=== PATIENT | male | born 1980 | race Caucasian/White ===

== ENCOUNTER 2016-12-29 17:03 | Inpatient (IN) | payer OTHER ==
[~2016-12-29] VITALS: Ht 177.8 cm; Wt 91.2 kg
--- NOTE | 2016-12-29 19:12 | NUR ---
PT WAS AN OUTPATIENT CT. PER OENOLOGIST JORDANA, PT WAS WAITING HERE FOR RESULTS. CT IS (+) FOR APPENDICITIS. PT BROUGHT TO ER WAITING ROOM BY JORDANA. PINA IN ADMITTING NOTIFIED TO CONVERT PT'S ACCOUNT TO ER. TRIAGE ESTUARDO (OFF-GOING) & JOSE MANUEL Sanchez (ONCOMING) NOTIFIED OF PT'S STATUS & PRESENCE IN ER LOBBY.
--- NOTE | 2016-12-29 19:34 | NUR ---
AT [facility]
--- NOTE | 2016-12-29 19:40 | NUR ---
PT IN ED FOR RLQ PAIN X2 DAYS WITH ONE EPISODE OF DIARRHEA TODAY. DENIES N/V. PT AAO4, RESP E/U, STS NO PAIN BUT REPORTS A "DISCOMFORT." PT HAS NO FURTHER REQUESTS AT THIS TIME
[2016-12-29 19:59] LABS: BASOPHIL % 0.7 % (0-2); PLATELET COUNT 252 x10^3mcL (130-400); RED CELL DISTRIBUTION WIDTH 12.7 % (11.5-14.5)
--- NOTE | 2016-12-29 20:01 | NUR ---
PT REQUESTED TO USE PHONE TO MAKE PHONE CALL
--- NOTE | 2016-12-29 20:47 | NUR ---
FLUIDS COMPLETED INFUSION. PT AAO4, RESP E/U; STS 0/10 PAIN AT THIS TIME
--- NOTE | 2016-12-29 21:02 | NUR ---
REPORT GIVEN TO JANET TO ASSUME CARE OF PT
[2016-12-29 21:14] LABS: T3 TOTAL 1.27 ng/mL
[2016-12-29 21:15] LABS: FREE T4 0.92 ng/dL (0.76-1.46); FREE THYROXINE INDEX 2.6 ug/dL (1.4-4.5); T4(THYROXINE) 7.3 ug/dL (4.7-13.3)
[2016-12-29 21:15] LABS: ALBUMIN 4.2 g/dL (3.4-5.0); ALKALINE PHOSPHATASE 75 U/L (46-116); ALT/SGPT 29 U/L (16-63); AST/SGOT 21 U/L (15-37); BILIRUBIN TOTAL 0.7 mg/dL (0.20-1.00); CARBON DIOXIDE 26.3 mmol/L (21-32); CHLORIDE SERUM 101 mmol/L (98-107); CREATININE SERUM 0.8 mg/dL (0.7-1.3); GFR1 > 60 mL/min; GLUCOSE SERUM 100 mg/dL (74-106); POTASSIUM SERUM 3.7 mmol/L (3.5-5.1); SODIUM SERUM 139 mmol/L (136-145); TOTAL PROTEIN, SERUM 8.1 g/dL (6.4-8.2)
[2016-12-29 21:24] VITALS: BP 114/71
--- NOTE | 2016-12-29 21:31 | NUR ---
REC'D AOX4, SPEECH CLEAR. AT THE BEDSIDE. DENIES PAIN. ATTACHED TELE 9, NSR. ON RA, NO SOB NOTED. IV SITE WNL. ORIENTED TO ROOM AND SURROUNDINGS. CALL LIGHT WITHIN REACH, PROVIDED REPORT TO LARY MEYERS FOR CONTINUITY OF CARE.
[2016-12-29 21:40] LABS: CHOLESTEROL/HDL RATIO 4.1; MAGNESIUM 1.8 mg/dL (1.8-2.4); PHOSPHOROUS 3.5 mg/dL (2.5-4.9)
--- NOTE | 2016-12-29 21:48 | NUR ---
PT. RESTING COMFORTABLY AT THIS TIME W/ OUT ANY ABD. PAIN OR NAUUSEA. PT. MADE AWARE THAT HE'S NPO. IVF NS STARTED AT 140CC/HR LAC. AT BEDSIDE. CALL LIGHT PLACED WITHIN REACH.
--- NOTE | 2016-12-29 22:10 | NUR ---
DR. BLAIR CALLED TO NOTIFY THAT HE WILL BE DOING SURGERY, LAP APPE W/ POSSIBLE OPEN, ON HIS PATIENT TOMORROW. DR. ZALDIVAR HAS PLACED ORDERS RECEIVED FROM DR. BLAIR. PT. MADE AWARE.
--- NOTE | 2016-12-29 22:43 | NUR ---
RECEIVED CONSENT FOR SURGERY.
[2016-12-30 01:28] LABS: microscopic required? YES; urine erythrocyte TRACE (NEGATIVE)
[2016-12-30 01:45] LABS: AMPHETAMINE QUAL UR NONE DETECTED (NEG <=1000)
--- NOTE | 2016-12-30 05:00 | NUR ---
ANA LILIA BATH COMPLETED. PT. DENIES ANY ABD. PAIN OR NAUSEA THIS MORNING. IV SITE REMAINS INTACT. CALL LIGHT WITHIN REACH.
[2016-12-30 06:03] VITALS: BP 113/52
--- NOTE | 2016-12-30 06:52 | NUR ---
REPORT GIVEN TO TAYLOR OR . PT. TRANSPORTED DOWN TO OR W/ OR TECH. SIGN. OTHER FOLLWING.
--- NOTE | 2016-12-30 07:46 | NUR ---
PT IS OUT TO SURGERY.
[2016-12-30 10:13] VITALS: BP 121/74
--- NOTE | 2016-12-30 10:15 | NUR ---
PT BACK FROM O.R SLEEPY BUT AROUSABLE. IN NO ACUTE RESP. DISTRESS. ALERT AND ORIENTED. VS STABLE. IVF INFUSING WELL AND SITE CLEAR. INCISION SITES WITH DERMABOND INTACT. NO DRAINAGE NOR BLEEDING NOTED.FAMILY AT BEDSIDE. PT DENIES PAIN AT THIS TIME. WILL CONTINUE WITH PLAN OF CARE.
[2016-12-30 12:17] VITALS: Ht 177.8 cm; Wt 91.2 kg
[2016-12-30 13:58] VITALS: BP 107/63
--- NOTE | 2016-12-30 15:46 | NUR ---
PT AMBULATED TO THE BATHROOM WITH MIN. ASSIST. C/O ABD. DISCOMFORT. MEDICATED WITH NORCO.
[2016-12-30 16:30] VITALS: BP 101/64
--- NOTE | 2016-12-30 18:45 | NUR ---
PT TOLERATED WELL WITH FULL LIQ. DIET. NO C/O N/V NOR ABD. PAIN AT THIS TIME. VS REMAINS WNL. IVF INFUSING WELL AND SITE CLEAR. FAMILY AT BEDSIDE. CALL LIGHT WITHIN REACH. WILL BE ENDORSED TO INCOMING SHIFT.
--- NOTE | 2016-12-30 19:00 | NUR ---
RECEIVED REPORT FROM LUIGI BRUNO, WILL TAKE OVER CARE. PT RESTING IN BED, NO DISTRESS NOTED, WILL CONTINUE TO MONITOR.
--- NOTE | 2016-12-30 19:30 | NUR ---
PT LYING IN BED AOX4, COMPLAININING ABOUT TENDERNESS TO THE ABD WITH TOUCH, HAS NOT HAD A BM SINCE BEFORE ADMISSION. PT GETS UP TO USE THE RESTROOM AND AMBULATED ONCE AROUND THE FLOOR. NO OTHER COMPLAINTS. WILL CONTINUE TO MONITOR.
--- NOTE | 2016-12-31 01:00 | NUR ---
PT IN BED RESTING, NO S/S OF PAIN WILL CONTINUE TO MONITOR
[2016-12-31 06:03] LABS: BASOPHIL % 0.4 % (0-2); PLATELET COUNT 230 x10^3mcL (130-400); RED CELL DISTRIBUTION WIDTH 12.5 % (11.5-14.5)
[2016-12-31 06:08] LABS: CALCIUM 8.2 mg/dL (8.5-10.1); CARBON DIOXIDE 26.5 mmol/L (21-32); CHLORIDE SERUM 104 mmol/L (98-107); CREATININE SERUM 0.8 mg/dL (0.7-1.3); GFR1 > 60 mL/min; GLUCOSE SERUM 100 mg/dL (74-106); POTASSIUM SERUM 3.7 mmol/L (3.5-5.1); SODIUM SERUM 138 mmol/L (136-145)
[2016-12-31 06:12] VITALS: BP 119/64
[2016-12-31 06:13] LABS: MAGNESIUM 1.9 mg/dL (1.8-2.4)
--- NOTE | 2016-12-31 07:12 | NUR ---
REPORT GIVEN TO RN NAMRATA ALL QUESTIONS ADDRESSED, WILL ENDORSE CARE
--- NOTE | 2016-12-31 07:50 | NUR ---
RECEIVED AWAKE, ALERT AND ORIENTED. NO RESP. DISTRESS NOTED. NO C/O PAIN OR DISCOMFORT. CALL LIGHT WITHIN REACH.
--- NOTE | 2016-12-31 08:19 | NUR ---
PT C/O MILD TO MOD. ABD. DISCOMFORT. MEDICATED WITH NORCO.
[2016-12-31 09:17] VITALS: BP 112/61
--- NOTE | 2016-12-31 14:48 | NUR ---
AMBULATED TO HALLWAYS WITH NO DIFFICULTIES. C/O MILD ABD. DISCOMFORT. MEDICATED WITH NORCO
[2016-12-31 17:00] VITALS: BP 116/69
--- NOTE | 2016-12-31 19:07 | NUR ---
REMAINS IN NO DISTRESS, AWAKE, ALERT AND ORIENTED. VS STABLE. NO C/O PAIN OR DISCOMFORT AT THIS TIME. IVF INFUSING WELL AND SITE CLEAR. CALL LIGHT WITHIN REACH. WILL BE ENDORSED TO INCOMING SHIFT.
--- NOTE | 2016-12-31 19:16 | NUR ---
aao x 4. speech clear and appropriate. breathing even and unlabored on room air. dermabonds to abd intact. denies having pain at this time. on regular diet, stated tolerated well. stated passing gas, no stool yet. ivf of d5 1/2ns at 100ml/hr.
[2016-12-31 20:40] VITALS: BP 130/82
--- NOTE | 2017-01-01 | NUR ---
EYES CLOSED, BREATHING EVEN AND UNLABORED. CALL LIGHT WITHIN EASY REACH.
--- NOTE | 2017-01-01 00:01 | NUR ---
LATE ENTRY: 2100H - AMBULATED IN HALLWAY WITH STEADY GAIT
[2017-01-01 05:43] VITALS: BP 108/63
[2017-01-01 06:20] LABS: BASOPHIL % 0.5 % (0-2); PLATELET COUNT 240 x10^3mcL (130-400); RED CELL DISTRIBUTION WIDTH 12.1 % (11.5-14.5)
--- NOTE | 2017-01-01 07:04 | NUR ---
AMBULATING IN ROOM. STATED COMFORTABLE AT THIS TIME. ENDORSED TO NURSE BRUNO
[2017-01-01 07:06] LABS: CALCIUM 8.4 mg/dL (8.5-10.1); CARBON DIOXIDE 27.3 mmol/L (21-32); CHLORIDE SERUM 104 mmol/L (98-107); CREATININE SERUM 0.8 mg/dL (0.7-1.3); GFR1 > 60 mL/min; GLUCOSE SERUM 102 mg/dL (74-106); MAGNESIUM 1.8 mg/dL (1.8-2.4); PHOSPHOROUS 2.8 mg/dL (2.5-4.9); POTASSIUM SERUM 3.9 mmol/L (3.5-5.1); SODIUM SERUM 139 mmol/L (136-145)
--- NOTE | 2017-01-01 07:42 | NUR ---
RECEIVED AWAKE, ALERT AD ORIENTED. WALKING AROUND. NO ACUTE DISTRESS NOTED. NO C/O PAIN OR DISCOMFORT. IVF INFUSING WELL. VS WNL. CALL LIGHT WITHIN REACH. WILL CONTINUE W/PLAN OF CARE.
[2017-01-01 09:30] VITALS: BP 129/76
--- NOTE | 2017-01-01 13:35 | NUR ---
PT TOLERATED WELL WITH FOOD, NO C/O N/V NOR ABD PAIN. PASSING GAS BUT NO BM YET. ABD. SOFT WITH ACTIVE BS.
--- NOTE | 2017-01-01 17:27 | NUR ---
C/O PAIN TO INCISION SITE, MEDICATED WITH NORCO
[2017-01-01 17:43] VITALS: BP 13/84
--- NOTE | 2017-01-01 20:00 | NUR ---
RECEIVED PT IN BED, ALERT AND ORIENTED. RESP. EVEN AND UNLABORED. ON ROOM AIR, LUNGS SOUNDS CLEAR BILAT. SAT. WELL. NO DISTRESS NOTED. AFEBRILE AND VITAL SIGNS STABLE. NO TELE, DENIES CHEST PAIN OR ANY DISCOMFORT AT THIS TIME. IVF, D51/2NS AT 50ML/HR, INTACT AND INFUSING VIA LT AC, SITE CLEAR. ABD. INCISION SITE WITH DERMABOND, DRY AND INTACT. ABD. SOFT. NON DISTENDED, NO BM AT THIS TIME. PASSING BELEN. NO N/V NOTED. CONSTANZA. PO. WELL. AMBULATORY. VOIDING FREELY. ASSISTED WITH HS CARE. CALL LIGHT WITHIN REACH. WILL CONTINUE TO MONITOR.
[2017-01-01 21:21] VITALS: BP 124/81
--- NOTE | 2017-01-02 02:07 | NUR ---
COMPLAINED OF ABD. SURG. SITE PAIN, 4/, REQUESTING PAIN MED, MEDICATED WITH NORCO 1TAB PO ORDERED. WILL CONTINUE TO MONITOR.
[2017-01-02 05:46] VITALS: BP 110/68
--- NOTE | 2017-01-02 06:37 | NUR ---
SLEPT WELL, NO COMPLAINTS OF PAIN OR ANY DISCOMFORT AT THIS TIME. AFEBRILE AND VITAL SIGNS STABLE .DUE MEDS GIVEN ORDERED, CONSTANZA. WELL. IVF INTACT AND PATENT. ABD. SURG SITE WITH DERMABOND, DRY AND INTACT. KEPT COMFORTABLE. RESP. EVEN AND UNLABORED. NO DISTRESS NOTED. VOIDING FREELY. WILL ENDORSE TO INCOMING NURSE.
--- NOTE | 2017-01-02 06:53 | NUR ---
NO BM AT THIS TIME, PT STATES PASSING GAS. NO N/V NOTED. WILL ENDORSE TO INCOMING NURSE.
--- NOTE | 2017-01-02 07:05 | NUR ---
PT AWAKE, COOPERATIVE OF CARE. NO DISTRESS AT MOMENT. EFFORTLESS BREATHING ON ROOM AIR. IV INFUSING WELL TO LEFT HAND #22 D5 1/2NS AT 50ML/HR. BED IN LOWEST POSITION, CALL LIGHT WITHIN REACH.
[2017-01-02 09:19] VITALS: BP 114/64
[2017-01-02 11:27] LABS: BASOPHIL % 0.4 % (0-2); PLATELET COUNT 273 x10^3mcL (130-400); RED CELL DISTRIBUTION WIDTH 12.5 % (11.5-14.5)
--- NOTE | 2017-01-02 12:10 | NUR ---
PT IN LOW FOWLERS. NO DISTRESS NOTED. DENIES PAIN AT MOMENT.
[2017-01-02 13:06] VITALS: BP 114/64
[2017-01-02 13:29] LABS: CALCIUM 8.9 mg/dL (8.5-10.1); CARBON DIOXIDE 27.2 mmol/L (21-32); CHLORIDE SERUM 103 mmol/L (98-107); CREATININE SERUM 0.8 mg/dL (0.7-1.3); GFR1 > 60 mL/min; GLUCOSE SERUM 93 mg/dL (74-106); POTASSIUM SERUM 3.8 mmol/L (3.5-5.1); SODIUM SERUM 138 mmol/L (136-145)
[2017-01-02] MEDS ORDERED: LEVAQUIN500 M1 PO (15:04)
[2017-01-02] MEDS ORDERED: FLA500 PO (15:04)
[2017-01-02] MEDS ORDERED: LAC PO (15:05)
[2017-01-02] MEDS ORDERED: NORCO1 TA2 PO (15:37)
--- NOTE | 2017-01-02 15:40 | NUR ---
DISCHARGE INSTRUCTIONS GIVEN TO PATIENT AND . PT VERBALIZED UNDERSTANDING FOR FOLLOW-UP APPOINTMENT AND PRESCRIPTIONS. IV DC'D PT TOLERATED WELL, CATHETER INTACT, NO PHLEBITIS. ESCORTED PT OUT OF UNIT SAFELY.
== END 2017-01-02 15:45 | disposition home or self-care (01) | DRG 340 ==
LOC: CT 17:03 → ED 17:03 → EDSTATUS 19:09 → MU 19:49 → DU 19:49 → MU 12-30 15:36
PROVIDERS: Emergency Medicine; Family Medicine; Surgery; ADMIT Family Medicine
PROC: 0DTJ4ZZ Resection of Appendix, Percutaneous Endoscopic Approach (ICD-10-PCS; principal; 2016-12-30 07:30)
DX: K35.2 Acute appendicitis with generalized peritonitis (principal); F17.210 Nicotine dependence, cigarettes, uncomplicated
CPT/HCPCS: 83880; 84439; 94150; J0696; J1170; J2175; J2250; J2270; J2405; J3010; J3490; J7030; Q9967